=== PATIENT | male | born 1995 | race African-American/Black ===

== ENCOUNTER 2021-03-08 20:58 | Emergency (ER) | payer OTHER ==
[~2021-03-08] VITALS: Ht 170.1 cm; Wt 83.9 kg
[~2021-03-08 20:58] MED LIST: ATARAX25 MG PO; BACTRIM DS 8001 TA1 PO; CIPROFLOXACIN500 MG PO; DOXYCYCLINE HY100 M3 PO; FIORICET 325 MG1 TAB PO; HYDROCODONE BIT1 T11 PO; IBUPROFEN 200200 MG PO; IMITREX100 MG PO; KENALOG 0.025%15 GM PO; KENALOG0.1% TP; MOTRIN400 MG PO; MOTRIN800 MG PO; SEROQUEL100 MG PO; ZITHROMAX Z PA250 MG PO; ZOFRAN ODT4 MG SL
[2021-03-08 21:03] VITALS: BP 118/82
[2021-03-08 22:19] LABS: URINE AMPHETAMINES < 1000 (1000ng/ml); URINE BARBITURATES < 200 (200ng/ml); URINE BENZODIAZEPINES < 200 (200ng/ml); URINE CANNABINOIDS (THC) > 50 (50ng/ml); URINE COCAINE < 300 (300ng/ml); URINE METHADONE < 300 (300ng/ml); URINE OPIATES < 300 (300ng/ml)
[2021-03-08 22:24] LABS: URINE PHENCYCLIDINE < 25 (25ng/ml)
== END 2021-03-09 00:51 ==
LOC: ED 20:58
PROVIDERS: Hospitalist
DX: S16.1XXA Strain of muscle, fascia and tendon at neck level, initial encounter (principal); S20.213A Contusion of bilateral front wall of thorax, initial encounter; Z88.0 Allergy status to penicillin; Z88.1 Allergy status to other antibiotic agents; Y08.89XA Assault by other specified means, initial encounter; Y93.89 Activity, other specified; Y92.89 Other specified places as the place of occurrence of the external cause; Y99.8 Other external cause status

== ENCOUNTER 2022-08-03 08:22 | Emergency (ER) | payer OTHER ==
[~2022-08-03] VITALS: Ht 170.1 cm; Wt 84.8 kg
[2022-08-03 08:28] VITALS: BP 127/66
== END 2022-08-03 10:11 | disposition home or self-care (01) ==
LOC: ED 08:22
DX: M79.605 Pain in left leg (principal); Z88.0 Allergy status to penicillin; Z88.1 Allergy status to other antibiotic agents

== ENCOUNTER 2022-10-07 12:12 | Emergency (ER) | payer OTHER ==
[~2022-10-07] VITALS: Ht 170.1 cm; Wt 83.9 kg
[2022-10-07 12:25] VITALS: BP 118/102
[2022-10-07] MEDS ORDERED: NAPROSYN500 MG PO (13:27)
== END 2022-10-07 13:37 | disposition home or self-care (01) ==
LOC: ED 12:12
DX: S46.211A Strain of muscle, fascia and tendon of other parts of biceps, right arm, initial encounter (principal); Z88.0 Allergy status to penicillin; Z88.1 Allergy status to other antibiotic agents; W18.39XA Other fall on same level, initial encounter; Y93.89 Activity, other specified; Y92.89 Other specified places as the place of occurrence of the external cause; Y99.8 Other external cause status

== ENCOUNTER 2022-10-10 15:42 | Emergency (ER) | payer OTHER ==
[~2022-10-10 15:42] MED LIST changes: +NAPROSYN500 MG PO
[2022-10-10 16:11] VITALS: BP 126/77
[2022-10-10] MEDS ORDERED: TRAMADOL HCL50 MG PO (16:17)
== END 2022-10-10 16:16 | disposition home or self-care (01) ==
LOC: ED 15:42
DX: S50.01XA Contusion of right elbow, initial encounter (principal); G43.909 Migraine, unspecified, not intractable, without status migrainosus; J45.909 Unspecified asthma, uncomplicated; Z88.0 Allergy status to penicillin; Z88.1 Allergy status to other antibiotic agents; W19.XXXA Unspecified fall, initial encounter; Y93.89 Activity, other specified; Y92.89 Other specified places as the place of occurrence of the external cause; Y99.8 Other external cause status

== ENCOUNTER 2022-10-29 20:42 | Emergency (ER) | payer OTHER ==
[~2022-10-29] VITALS: Ht 170.1 cm; Wt 86.2 kg
[~2022-10-29 20:42] MED LIST changes: +TRAMADOL HCL50 MG PO
[2022-10-29 20:57] VITALS: BP 106/65
[2022-10-29] MEDS ORDERED: PROVENTIL HFA6.7 GM PO (21:19)
[2022-10-29] MEDS ORDERED: LOTRISONE 0.05%15 GM PO (21:19)
[2022-10-29] MEDS ORDERED: CEFDINIR300 MG PO (21:19)
== END 2022-10-29 22:45 | disposition home or self-care (01) ==
LOC: ED 20:42
DX: J06.9 Acute upper respiratory infection, unspecified (principal); B35.3 Tinea pedis; G43.909 Migraine, unspecified, not intractable, without status migrainosus; J45.909 Unspecified asthma, uncomplicated

== ENCOUNTER 2024-07-14 11:13 | Emergency (ER) | payer OTHER ==
[~2024-07-14 11:13] MED LIST changes: +CEFDINIR300 MG PO; +LOTRISONE 0.05%15 GM PO; +PROVENTIL HFA6.7 GM PO
[2024-07-14 11:21] VITALS: BP 145/84
== END 2024-07-14 11:28 ==
LOC: ED 11:13
DX: S01.01XA Laceration without foreign body of scalp, initial encounter (principal); G43.909 Migraine, unspecified, not intractable, without status migrainosus; J45.909 Unspecified asthma, uncomplicated; Z53.29 Procedure and treatment not carried out because of patient's decision for other reasons; X58.XXXA Exposure to other specified factors, initial encounter; Y93.89 Activity, other specified; Y92.89 Other specified places as the place of occurrence of the external cause; Y99.8 Other external cause status

== ENCOUNTER 2025-05-23 03:36 | Emergency (ER) | payer OTHER ==
[~2025-05-23] VITALS: Ht 170.1 cm; Wt 81.6 kg
[2025-05-23 03:48] VITALS: BP 131/76
== END 2025-05-23 06:18 | disposition home or self-care (01) ==
LOC: ED 03:36
DX: M79.605 Pain in left leg (principal); G43.909 Migraine, unspecified, not intractable, without status migrainosus; J45.909 Unspecified asthma, uncomplicated; Z86.718 Personal history of other venous thrombosis and embolism; Z88.0 Allergy status to penicillin; Z88.1 Allergy status to other antibiotic agents

== ENCOUNTER 2025-06-02 05:47 | Emergency (ER) | payer OTHER ==
[~2025-06-02] VITALS: Ht 170.1 cm; Wt 83.9 kg
[2025-06-02 08:58] VITALS: BP 124/70
== END 2025-06-02 09:00 | disposition home or self-care (01) ==
LOC: ED 05:47
DX: M79.662 Pain in left lower leg (principal); J45.909 Unspecified asthma, uncomplicated; G43.909 Migraine, unspecified, not intractable, without status migrainosus; Z88.0 Allergy status to penicillin; Z88.1 Allergy status to other antibiotic agents